=== PATIENT | female | born 1970 | race Caucasian/White ===

== ENCOUNTER → 2016-10-30 | Outpatient (CLI) | payer OTHER ==
[2016-07-18 18:16] VITALS: BP 143/73
[~2016-10-30] MED LIST: CYCL10TA2 PO; IBUP-1060 PO
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
== END | disposition home or self-care (01) ==
LOC: KCIC MRI 15:24
PROVIDERS: ATTEND Nurse Practitioner Family
DX: M54.9 Dorsalgia, unspecified (principal)
CPT/HCPCS: 72148

== ENCOUNTER → 2017-01-17 | Outpatient (CLI) | payer OTHER, BC ==
[2016-07-18 18:16] VITALS: BP 143/73
[~2017-01-17] MED LIST changes: +CHLO750T PO; +IOHEXOL 180 MG/ML 10 ML VIAL. ONE; +TRAM50TA PO; +methylPREDNISolone ACETATE 40 MG/ML VIAL. ONE; +methylPREDNISolone ACETATE 80 MG/ML VIAL. ONE
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
== END | disposition home or self-care (01) ==
LOC: PNCL 10:06
PROVIDERS: ATTEND Anesthesiology
DX: M54.16 Radiculopathy, lumbar region (principal); M19.90 Unspecified osteoarthritis, unspecified site
CPT/HCPCS: 62323; J1030; J1040

== ENCOUNTER → 2017-02-07 | Outpatient (CLI) | payer OTHER, BC ==
[2016-07-18 18:16] VITALS: BP 143/73
--- NOTE | 2017-02-07 23:52 | PAIN ---
DATE OF SERVICE: 02/07/2017 DIAGNOSES: Lumbar radiculopathy. HISTORY OF PRESENT ILLNESS: The patient is a 46-year-old female who returns for followup status post lumbar epidural steroid injection x 1. The patient reports about 50% improvement overall. Pain is still in her low back and left leg, but not traveling nearly as far into the lower legs, into the thigh and lateral anterior aspect and the hip on the left side. The patient reports the pain is a 6 on a scale of 10 at its worse ____ currently. Reports that it is tingling and burning and aching, but much better. The patient reports she is sleeping better at night, still only sleeping about 4 hours at a time, but the pain is not usually awaking her from sleep as it was previously. The patient reports she has been increasing her activity with greater ease and comfort and feels encouraged that she is doing somewhat better. The patient reports no new motor or sensory deficits, no new bowel or bladder incontinence or other complaints. PHYSICAL EXAMINATION: VITAL SIGNS: The patient's blood pressure 116/74, pulse 84, respirations are 20, temperature 98.7 degrees Fahrenheit. Height is 5 feet 6 inches, weight is 174 pounds. GENERAL: The patient is awake, alert, oriented, appropriate, very pleasant demeanor. HEENT: Head shows normocephalic, atraumatic. Extraocular movements are intact and symmetrical. Oral cavity shows mucous membranes moist and pink. Dentition is intact. NECK: Shows anterior throat supple. CHEST: Shows normal on inspection. Breath sounds clear to auscultation bilaterally. HEART: Shows S1 and S2 clear. ABDOMEN: Soft, nontender, nondistended. BACK: Shows spine grossly in the midline. Normal appearing thoracic kyphosis and lumbar lordotic curvature. Lumbar paraspinous musculature is symmetrical on inspection. On palpation shows some very mild tenderness with palpation only in the low lumbar distribution without asymmetry, without radiation of pain, no tenderness over the sacrum or sacroiliac regions. The patient shows good rotational motion of the lumbar spine, both laterally as well as extension and flexion without difficulty. LOWER EXTREMITIES: Showed deep tendon reflexes 2+ in the patellar, 1+ tendo-calcaneus tendons are equal. Motor exam is strong with 5/5 dorsiflexion, extension, quadriceps and hamstring flexion and symmetrical. Options were discussed with the patient and the patient's old chart was reviewed as her current medication regimen updated. Current review of systems updated today as well. We will proceed with a second lumbar epidural steroid injection today with fluoroscopic guidance. Risks were again discussed including, but not limited to bleeding, infection, possibility of epidural hematoma, subsequent neurologic compromise, dural puncture, headaches, spinal cord and/or nerve damage, side effects of steroid medication and poor results regarding pain control. The patient understands and wishes to proceed. The patient will return to clinic in approximately 2 weeks for followup, was counseled on return appointment, activity level and side effects to be aware of. DIAGNOSIS: Lumbar radiculopathy. PROCEDURE: Lumbar epidural steroid injection in translaminar approach at L4-L5 level using C-arm fluoroscopic guidance under sterile prep and drape using local anesthetic. MEDICATIONS INJECTED: 120 mg of Depo-Medrol plus 10 mL of preservative-free normal saline and 2 mL Isovue for contrast. CONDITION AT DISCHARGE: Stable. The patient tolerated procedure well, had no complications. FANY PICHARDO MD DR: MARGUERITE/christ JOB#: [id number] / [id number]
== END | disposition home or self-care (01) ==
LOC: PNCL 08:41
PROVIDERS: ATTEND Anesthesiology
DX: M54.16 Radiculopathy, lumbar region (principal)
CPT/HCPCS: 62323; J1030; J1040

== ENCOUNTER → 2017-02-21 | Outpatient (CLI) | payer OTHER, BC ==
[2016-07-18 18:16] VITALS: BP 143/73
--- NOTE | 2017-02-22 00:04 | PAIN ---
DATE OF SERVICE: 02/21/2017 DIAGNOSES: Lumbar radiculopathy. HISTORY OF PRESENT ILLNESS: The patient is a 46-year-old female who returns for followup status post lumbar epidural steroid injections x 2. The patient reports about 50% improvement, but the pain is returning in the low back and left lower extremity. The patient reports feeling better for about a week or two and the pain returns fairly significantly. It is a 7 on a scale 10 currently, it can be as low as a 2 on a scale of 10, it is generally about 4 on a scale of 10. The patient reports it as aching, tingling, burning in left leg, mostly in the lateral and anterior thigh, posterior thigh, posterior calf. The patient reports no new motor or sensory deficits, no new bowel or bladder incontinence, but significant pain with activity, standing, walking. It has been waking her from sleep occasionally, but not every night. Usually feels better with lying down or sitting, but worse with standing and walking. PHYSICAL EXAMINATION: VITAL SIGNS: The patient shows blood pressure 108/72, pulse 80, respirations are 18, temperature 98.2 degrees Fahrenheit, height is 5 feet 6 inches, weight is ____ pounds. GENERAL: The patient is awake, alert, oriented, appropriate, very pleasant demeanor. HEENT: Head shows normocephalic, atraumatic. Extraocular movements are intact and symmetrical. Oral cavity, mucous membranes are moist and pink. Dentition is intact. NECK: Shows anterior throat supple without palpable lymphadenopathy noted. Swallow reflex is symmetrical. CHEST: Shows normal on inspection. Breath sounds clear to auscultation bilaterally. HEART: Shows S1 and S2 clear. ABDOMEN: Soft, nontender, nondistended. No palpable organomegaly is noted. BACK: Shows spine grossly midline. Lumbar paraspinous muscle shows some moderate tenderness with palpation, but only in the middle and lower distribution of paraspinous muscles ____ diffusely without radiation, without asymmetry or atrophy, hypertrophy with normal muscle girth on palpation. No tenderness over the sacrum or sacroiliac regions. EXTREMITIES: Lower extremities showed deep tendon reflexes at 2+ in the patellar, 1+ tendo-calcaneus tendons are equal. Motor exam is strong with 5/5 dorsiflexion, extension, quadriceps and hamstring flexion equal. Options were discussed with the patient and the patient's old chart was reviewed as her current medication regimen updated. Current review of systems updated today as well. We will proceed with a third in the series of lumbar epidural steroid injection with fluoroscopic guidance. Risks were again discussed including, but not limited to bleeding, infection, possibility of epidural hematoma and subsequent neurologic compromise, dural puncture, headaches, spinal cord and/or nerve damage, side effects of steroid medication and poor results regarding pain control. The patient understands and wishes to proceed. The patient will return to clinic in approximately 2 weeks for followup, was counseled on return appointment, activity level and side effects to be aware of. DIAGNOSIS: Lumbar radiculopathy. PROCEDURE: Lumbar epidural steroid injection in translaminar approach at the L4-L5 level using C-arm fluoroscopic guidance under sterile prep and drape using local anesthetic. MEDICATIONS INJECTED: 120 mg Depo-Medrol plus 10 mL of preservative-free normal saline and 2 mL Isovue for contrast. CONDITION AT DISCHARGE: Stable. The patient tolerated procedure well, had no complications. FANY PICHARDO MD DR: MARGUERITE/christ JOB#: [id number] / [id number]
== END | disposition home or self-care (01) ==
LOC: PNCL 08:42
PROVIDERS: ATTEND Anesthesiology
DX: M54.16 Radiculopathy, lumbar region (principal)
CPT/HCPCS: 62323; J1030; J1040

== ENCOUNTER → 2017-12-08 | Outpatient (CLI) | payer OTHER, BC ==
[~2017-12-08] MED LIST changes: -CHLO750T PO; -CYCL10TA2 PO; -IBUP-1060 PO; +IOHEXOL 180 MG/ML 10 ML VIAL.; -IOHEXOL 180 MG/ML 10 ML VIAL. ONE; -TRAM50TA PO; +methylPREDNISolone ACETATE 40 MG/ML VIAL.; -methylPREDNISolone ACETATE 40 MG/ML VIAL. ONE; +methylPREDNISolone ACETATE 80 MG/ML VIAL.; -methylPREDNISolone ACETATE 80 MG/ML VIAL. ONE
== END | disposition home or self-care (01) ==
LOC: PNCL 09:07
DX: M54.16 Radiculopathy, lumbar region (principal)
CPT/HCPCS: 62323; J1030; J1040; Q9965

== ENCOUNTER → 2017-12-22 | Outpatient (CLI) | payer OTHER, BC | END | disposition home or self-care (01) | LOC: PNCL 08:53 | DX: M54.16 Radiculopathy, lumbar region (principal) | CPT/HCPCS: 62323; J1030; J1040; Q9965 ==

== ENCOUNTER → 2018-01-05 | Outpatient (CLI) | payer OTHER, BC | END | disposition home or self-care (01) | LOC: PNCL 09:21 | DX: M54.16 Radiculopathy, lumbar region (principal) | CPT/HCPCS: 62323; J1030; J1040; Q9965 ==

== ENCOUNTER → 2018-07-28 | Outpatient (CLI) | payer OTHER, BC ==
[2016-07-18 18:16] VITALS: BP 143/73
[~2018-07-28] MED LIST changes: +CHLO750T PO; +CYCL10TA2 PO; +IBUP-1060 PO; -IOHEXOL 180 MG/ML 10 ML VIAL.; +IOHEXOL 180 MG/ML 10 ML VIAL. ONE; +LIDOCAINE 1% PF 2 ML VIAL. ONE; +TRAM50TA PO; -methylPREDNISolone ACETATE 40 MG/ML VIAL.; +methylPREDNISolone ACETATE 40 MG/ML VIAL. ONE; -methylPREDNISolone ACETATE 80 MG/ML VIAL.; +methylPREDNISolone ACETATE 80 MG/ML VIAL. ONE
--- NOTE | 2018-07-28 12:05 | PAIN ---
DATE OF SERVICE: 07/28/2018 PROGRESS NOTE FOR PAIN CLINIC DIAGNOSES: Lumbar radiculopathy with lumbar degenerative disk disease. HISTORY OF PRESENT ILLNESS: This is a 48-year-old female who returns for followup status post lumbar epidural steroid injections x 3, last seen 01/05/2018. The patient did pretty well with about a 90% improvement until late May, so about the past month or so, she has been having some increased pain in the low back and left lower extremity, was returned fairly quickly in the posterior gluteus, posterior thigh, posterior calf with numbness in the foot and tingling. The patient reports it is burning as well as radiating, aching, shooting, sharp, worse with sitting on a hard surface. She has to change positions quite frequently, worse with activity, walking, awakens her from sleep at night. Again until late May, she was doing very well with decreased ability to have it limit her activities as well as better sleeping at night, distance walking, returning to work and household activities, now becoming more noticeable, more tender and more painful especially in the left lower extremity and the low back. The patient reports pain is a 9 on a scale of 10 at its worst, 6 on average and a 2 at its least and is a 6 today. The patient reports no new motor or sensory deficits, no new bowel or bladder incontinence. PHYSICAL EXAMINATION: VITAL SIGNS: The patient's blood pressure 129/86, pulse 101, respirations 18, temperature 98.2 degrees Fahrenheit, height is 5 feet 6 inches, weight is 186 pounds. GENERAL: The patient is awake, alert, oriented, appropriate, very pleasant demeanor. HEENT: Head shows normocephalic, atraumatic. Extraocular movements intact and symmetrical. Oral cavity: Mucous membranes moist and pink. Dentition is intact. NECK: Shows anterior throat supple without palpable lymphadenopathy noted. Swallow reflex is symmetrical. CHEST: Shows normal with inspection. Breath sounds clear to auscultation bilaterally. HEART: Shows S1, S2 clear. No murmurs auscultated. ABDOMEN: Soft, nontender, nondistended. No palpable organomegaly is noted. No rebound or guarding demonstrated. BACK: Shows spine grossly in the midline. Normal appearing thoracic kyphosis and lumbar lordotic curvature. Lumbar paraspinous muscle shows some moderate tenderness with palpation, but is symmetrical on inspection. No trigger points, no radiation, no asymmetry. The patient has no tenderness over the spinous processes, sacrum or sacroiliac regions. EXTREMITIES: The patient's lower extremities show deep tendon reflexes at 1+ in the patellar and tendo calcaneus tendons are equal. Motor exam is approximately 4 on a scale of 5 in the left with quadriceps and hamstring flexion and 5/5 on the right. Peripheral pulses are 1+ posterior tibia. No peripheral edema is noted bilaterally. PLAN: Options were discussed with the patient. The patient's old chart was reviewed as well as her current medication regimen updated. Current review of systems updated today as well. We will proceed with the first in the series of lumbar epidural steroid injection today with fluoroscopic guidance. Risks were again discussed including, but not limited to bleeding, infection, possibility of epidural hematoma and subsequent neurological compromise, dural punctures, headaches, spinal cord and/or nerve damage, side effects of steroid medication and poor results regarding pain control. The patient understands and wished to proceed. The patient will return to clinic in approximately 2 weeks for followup, was counseled on return appointment, activity level and side effects to be aware of. DIAGNOSES: Lumbar radiculopathy with lumbar degenerative disk disease. PROCEDURE: Lumbar epidural steroid injection, translaminar approach L4-L5 level using C-arm fluoroscopic guidance under sterile prep and drape using local anesthetic. MEDICATION INJECTED: A total of 120 mg Depo-Medrol plus 10 mL of preservative-free normal saline and 2 mL of Isovue for contrast. CONDITION AT DISCHARGE: Stable. The patient tolerated the procedure well, had no complications. FANY PICHARDO MD DR: MARGUERITE/christ JOB#: [id number] / [id number]
== END | disposition home or self-care (01) ==
LOC: PNCL 11:07
PROVIDERS: ATTEND Anesthesiology
DX: M51.16 Intervertebral disc disorders with radiculopathy, lumbar region (principal); Z79.899 Other long term (current) drug therapy
CPT/HCPCS: 62323; J1030; J1040; Q9965

== ENCOUNTER → 2018-08-21 | Outpatient (CLI) | payer OTHER, BC ==
[2016-07-18 18:16] VITALS: BP 143/73
[~2018-08-21] MED LIST changes: -LIDOCAINE 1% PF 2 ML VIAL. ONE
--- NOTE | 2018-08-21 12:34 | PAIN ---
DATE OF SERVICE: 08/21/2018 PROGRESS NOTE FOR PAIN CLINIC DIAGNOSIS: Lumbar radiculopathy with lumbar degenerative disk disease. HISTORY OF PRESENT ILLNESS: The patient is a 48-year-old female who returns for followup status post lumbar epidural steroid injection x 1. This series, the patient reports about 30% improvement overall, doing quite well initially, but the pain is returning now in the low back, left lower extremity, mostly in the posterior gluteus, posterior lateral thigh, lateral anterior thigh, medial thigh and posterior calf. The patient reports it is an aching, tingling, burning, radiating; rates 8 on a scale of 10 at its worst, 6 on average, 2 at its least and is 5 today, but reports initially increased activity with greater distance walking, doing household activities, traveling with much greater ease and comfort, but the pain has been beginning to return now after about 2 weeks. The patient reports it wakes her from sleep about every 4-5 hours at night now, initially it was not and the pain is returning as described. The patient reports no new motor or sensory deficits, no new bowel or bladder incontinence or other complaints. PHYSICAL EXAMINATION: VITAL SIGNS: The patient's blood pressure is 120/83, pulse 107, respirations 16, temperature 98.8 degrees Fahrenheit, height is 5 feet 6 inches, weighs 186 pounds. GENERAL: The patient is awake, alert, oriented, appropriate, very pleasant demeanor. HEENT: Head shows normocephalic, atraumatic. Extraocular movements are intact and symmetrical. Oral cavity: Mucous membranes moist and pink. Dentition is intact. NECK: Shows anterior throat supple without palpable lymphadenopathy noted. Swallow reflex symmetrical. CHEST: Shows normal on inspection. Breath sounds clear to auscultation bilaterally. HEART: Shows S1, S2 clear. No murmurs auscultated. ABDOMEN: Soft, nontender, nondistended. No palpable organomegaly is noted. BACK: Shows spine grossly in the midline. Normal-appearing thoracic kyphosis and lumbar lordotic curvature. Lumbar paraspinous muscle shows symmetrical with some moderate tenderness with palpation in the middle and lower distribution of paraspinous muscles, but diffusely without radiation, without trigger points. The patient does show good rotational motion of lumbar spine, both laterally as well as extension and flexion without significant difficulty or pain reported. EXTREMITIES: Lower extremities show deep tendon reflexes 1+ in the patellar and tendo calcaneus tendons are equal. Motor exam is strong with approximately 4 on a scale of 5 left and 5/5 on the right dorsiflexion, extension, but intact. Peripheral pulses are 1+ posterior tibia. No peripheral edema is noted bilaterally. Options were discussed with the patient. The patient's old chart was reviewed as was current medication regimen updated. Current review of systems updated today as well. We will proceed with a second in series of lumbar epidural steroid injection today with fluoroscopic guidance. Risks were again discussed including, but not limited to bleeding, infection, possibility of epidural hematoma, subsequent neurological compromise, dural puncture, headaches, spinal cord and/or nerve damage, side effects of steroid medication and poor results regarding pain control. The patient understands and wished to proceed. The patient will return to clinic in approximately 2 weeks for followup. She was counseled as to return appointment and activity level and side effects to be aware of. DIAGNOSIS: Lumbar radiculopathy with lumbar degenerative disk disease. PROCEDURE: Lumbar epidural steroid injection, translaminar approach L4-L5 level using C-arm fluoroscopic guidance under sterile prep and drape using local anesthetic. MEDICATION INJECTED: A total of 120 mg Depo-Medrol plus 10 mL of preservative-free normal saline and 2 mL of Isovue for contrast. CONDITION AT DISCHARGE: Stable. The patient tolerated the procedure well, had no complications. FANY PICHARDO MD DR: MARGUERITE/christ JOB#: [id number] / [id number]
== END | disposition home or self-care (01) ==
LOC: PNCL 10:37
PROVIDERS: ATTEND Anesthesiology
DX: M51.16 Intervertebral disc disorders with radiculopathy, lumbar region (principal)
CPT/HCPCS: 62323; J1030; J1040; Q9965

== ENCOUNTER → 2018-09-07 | Outpatient (CLI) | payer OTHER, BC ==
[2016-07-18 18:16] VITALS: BP 143/73
--- NOTE | 2018-09-08 01:35 | PAIN ---
DATE OF SERVICE: 09/07/2018 DIAGNOSES: Lumbar radiculopathy with lumbar degenerative disk disease. HISTORY OF PRESENT ILLNESS: The patient is a 48-year-old female who returns for followup status post lumbar epidural steroid injection x 2. Most recently on 08/21/2018, the patient did very well, about 80% improvement, reports still pain in the low back, left lower extremity, posterior gluteus, posterior thigh, lateral thigh, anterior thigh, medial thigh. The reports it is aching, tingling, burning, radiating and alternating pain; worse with walking, standing, changing positions; better with sitting or lying down, but does awaken her from sleep about every 5 hours if she lays on her right side. The patient reports the pain is a 4 on a scale of 10 at its worst, 2 on average, 1 at its least and is a 1 today. The patient reports no new motor or sensory deficits, no new bowel or bladder incontinence or other complaints. She is originally increasing her activity, walking, doing work activities to help with activities with greater ease and comfort. PHYSICAL EXAMINATION: VITAL SIGNS: Today, the patient's blood pressure 141/85, pulse 98, respirations 18, temperature 98.2 degrees Fahrenheit, 5 feet 6 inches, weighs 187 pounds. GENERAL: She is awake, alert, oriented, appropriate, very pleasant demeanor. HEENT: Head shows normocephalic, atraumatic. Extraocular movements intact and symmetrical. Oral cavity: Mucous membranes are moist and pink. Dentition is intact. NECK: Shows anterior throat supple. Swallow reflex is symmetrical. CHEST: Shows normal on inspection. Breath sounds clear to auscultation bilaterally. HEART: Shows S1, S2 clear. No murmurs auscultated. ABDOMEN: Soft, nontender, nondistended. No palpable organomegaly is noted. BACK: Shows spine grossly in the midline. Normal appearing thoracic kyphosis and lumbar lordotic curvature. Lumbar paraspinous musculature shows symmetrical on inspection, on palpation some mild tenderness only diffusely in the lower lumbar distribution without radiation. The patient shows good rotational motion of lumbar spine, both laterally as well as extension and flexion without significant difficulty. EXTREMITIES: The patient's lower extremities show deep tendon reflexes at 1+ in the patellar and tendo calcaneus tendons. Motor exam is approximately 4 on a scale of 5 on the left and 5/5 on the right with dorsiflexion, extension, quadriceps and hamstring flexion bilaterally. Peripheral pulses are 1+ without peripheral edema. Options were discussed with the patient. The patient's old chart was reviewed as her current medication regiment and updated. Current review of systems is updated today as well. We will proceed with a third in the series of lumbar epidural steroid injection today with fluoroscopic guidance. Risks were again discussed including, but not limited to bleeding, infection, possibility of epidural hematoma, subsequent neurological compromise, dural puncture headache, cord and/or nerve damage, side effects of steroid medication and poor results regarding pain control. The patient understands and wished to proceed. The patient to return to clinic in approximately 2 weeks for followup, was counseled on return appointment, activity level and side effects to be aware of. DIAGNOSIS: Lumbar radiculopathy with lumbar degenerative disk disease. PROCEDURES: Lumbar epidural steroid injection, translaminar approach at L4-L5 level using C-arm fluoroscopic guidance under sterile prep and drape using local anesthetic. MEDICATIONS INJECTED: A total of 120 mg Depo-Medrol plus 10 mL of preservative-free normal saline and 2 mL of Isovue for contrast. CONDITION AT DISCHARGE: Stable. The patient tolerated procedure well, had no complications. FANY PICHARDO MD DR: MARGUERITE/christ JOB#: [id number] / [id number]
== END | disposition home or self-care (01) ==
LOC: PNCL 07:34
PROVIDERS: ATTEND Anesthesiology
DX: M51.16 Intervertebral disc disorders with radiculopathy, lumbar region (principal); Z79.899 Other long term (current) drug therapy
CPT/HCPCS: 62323; J1030; J1040; Q9965

== ENCOUNTER → 2019-05-05 | Outpatient (CLI) | payer BC ==
[2016-07-18 18:16] VITALS: BP 143/73
--- NOTE | 2019-05-05 23:19 | PAIN ---
DATE OF SERVICE: 05/05/2019 PROGRESS NOTE FOR PAIN CLINIC DIAGNOSIS: Lumbar radiculopathy with lumbar degenerative disk disease. HISTORY OF PRESENT ILLNESS: The patient is a 49-year-old female who returns for followup status post lumbar epidural steroid injections x 3, last seen 09/07/2018. The patient did very well with about 95% improvement until the last 4-5 weeks. The patient reports the pain is returning in the low back, left lower extremity, was previously in the posterior gluteus, posterior thigh, posterior calf, lateral thigh, lateral anterior thigh and calf as well. The patient reports it is aching and sharp, shooting, tingling, burning, radiating into the left leg across the low back as well, but mostly on the left side. The patient reports no new motor or sensory deficits, no new bowel or bladder incontinence or other complaints. The patient reports the pain is a 9 on a scale of 10 at its worst, 7 on average, 4 at its least and is 4 today. The patient reports it is awaken her from sleep about every 6 hours. Initially, she was doing much better with increased distance walking, doing work activities, household activities and traveling with greater ease and comfort, but the pain is returning now over the past few weeks as noted. The patient reports no new motor or sensory deficits, no new bowel or bladder incontinence or other complaints. PHYSICAL EXAMINATION: VITAL SIGNS: The patient's blood pressure is 106/61, pulse 94, respirations 18, temperature 99.1 degrees Fahrenheit, height 5 feet 6 inches, weight is 150 pounds. GENERAL: The patient is awake, alert, oriented, appropriate, very pleasant demeanor. HEENT: Head is normocephalic, atraumatic. Extraocular movements are intact and symmetrical. Oral cavity: Mucous membranes moist and pink. Dentition is intact. NECK: Shows anterior throat supple without palpable lymphadenopathy noted. CHEST: Shows normal on inspection. Breath sounds are clear to auscultation bilaterally. HEART: Shows S1, S2 clear. No murmurs auscultated. ABDOMEN: Soft, nontender, nondistended. No palpable organomegaly is noted. No rebound or guarding demonstrated. BACK: Shows spine grossly in the midline. The patient's lumbar paraspinous muscle shows symmetrical on inspection, with palpation shows some moderate tenderness diffusely bilaterally going diffusely in the middle and lower distribution of paraspinous muscles. The patient has good rotational motion of lumbar spine, both laterally as well as extension and flexion without significant difficulty or pain reported. No trigger points demonstrated. No tenderness over the sacrum or sacroiliac regions. EXTREMITIES: The patient's lower extremities showed deep tendon reflexes 1+ in the patellar and tendo calcaneus tendons. Motor exam is strong with approximately 4 on a scale of 5 on the left and 5/5 on the right dorsiflexion, extension, quadriceps and hamstring flexion. The patient has a mild straight leg raise, which is positive on the left side at about 35-40 degrees, decreased with knee flexion, right side is negative. Gaenslen's and Joni's maneuvers remain negative bilaterally. Options were discussed with the patient. The patient's old chart was reviewed as her current medication regimen updated. Current review of systems updated today as well. We will proceed with a first in this series of lumbar epidural steroid injection today with fluoroscopic guidance. Risks were again discussed including, but not limited to bleeding, infection, possibility of epidural hematoma, subsequent neurological compromise, dural puncture, headaches, spinal cord and/or nerve damage, side effects of steroid medication and poor results regarding pain control. The patient understands and wished to proceed. The patient will return to clinic in approximately 2 weeks for followup. She was counselled on return appointment, activity level and side effects to be aware of. DIAGNOSES: Lumbar radiculopathy with lumbar degenerative disk disease. PROCEDURE: Lumbar epidural steroid injection, translaminar approach L4-L5 level using C-arm fluoroscopic guidance under sterile prep and drape using local anesthetic. MEDICATION INJECTED: The patient received a total of 120 mg Depo-Medrol plus 10 mL of preservative-free normal saline and 2 mL of contrast. CONDITION AT DISCHARGE: Stable. The patient tolerated procedure well, had no complications. FANY PICHARDO MD DR: MARGUERITE/christ JOB#: [id number] / [id number]
== END ==
LOC: PNCL 13:45
PROVIDERS: ATTEND Anesthesiology
DX: M51.16 Intervertebral disc disorders with radiculopathy, lumbar region (principal)
CPT/HCPCS: 62323; J1030; J1040; Q9965

== ENCOUNTER → 2019-05-20 | Outpatient (CLI) | payer BC ==
[2016-07-18 18:16] VITALS: BP 143/73
--- NOTE | 2019-05-21 12:34 | PAIN ---
DATE OF SERVICE: 05/20/2019 PROGRESS NOTE FOR PAIN CLINIC DIAGNOSES: Lumbar radiculopathy with lumbar degenerative disk disease. HISTORY OF PRESENT ILLNESS: The patient is a 49-year-old female who returns for followup status post lumbar epidural steroid injection x1 this series. The patient reports only about 20% improvement in the low back and left lower extremity. The patient reports that after a few days, the pain began to get better, but still significant with sitting, walking, standing, changing positions. The patient reports it is better with lying down, does not awaken her from sleep at night. Currently, the patient reports the pain is 8 on a scale of 10 at its worst, 5 on average, and 3 at its least over the past week and is a 5 today. The patient is a burning, aching in the low back, radiating to posterior gluteus, posterolateral thigh, lateral anterior thigh, medial thigh, and posterior lower leg. The patient reports again worse with walking, standing, changing positions, or sitting on hard surfaces without back support such as a bleacher. PHYSICAL EXAMINATION: VITAL SIGNS: The patient's blood pressure is 110/70, pulse 81, respirations 18, temperature 97.9 degrees Fahrenheit, height is 5 feet 6 inches and weight 155 pounds. GENERAL: The patient is awake, alert, oriented, appropriate, very pleasant demeanor. HEENT: Shows normocephalic, atraumatic. Extraocular movements are intact and symmetrical. Oral cavity: Mucous membranes moist and pink. Dentition is intact. NECK: Shows anterior throat supple without palpable lymphadenopathy noted. Swallow reflex symmetrical. CHEST: Shows normal on inspection. Breath sounds clear to auscultation bilaterally. HEART: Shows S1 and S2 clear. No murmurs auscultated. ABDOMEN: Soft, nontender, nondistended. No palpable organomegaly is noted. No rebound or guarding demonstrated. BACK: Shows spine grossly in the midline. Normal appearing thoracic kyphosis and lumbar lordotic curvature. Lumbar paraspinous muscle shows symmetrical on inspection, with palpation shows some mild tenderness in the inferior aspect of the lumbar paraspinous musculature diffusely bilaterally, but only diffusely without radiation. EXTREMITIES: The patient's lower extremities show deep tendon reflexes at 1+ in the patellar and tendo calcaneus tendons. Motor exam is approximately 4 on a scale of 5 on the left and 5/5 on the right. Peripheral pulses are 1+ posterior tibia. No peripheral edema is noted bilaterally. Options were discussed with the patient. The patient's old chart was reviewed as her current medication regimen updated. Current review of systems updated today as well. We will proceed with a second in the series of lumbar epidural steroid injection today with fluoroscopic guidance. Risks were again discussed including, but not limited to bleeding, infection, possibility of epidural hematoma, subsequent neurologic compromise, dural puncture, headaches, spinal cord and/or nerve damage, side effects of steroid medication, and poor results regarding pain control. The patient understands and wished to proceed. The patient will return to clinic in approximately 2 weeks for followup. She was counseled on return appointment, activity level and side effects to be aware of. DIAGNOSIS: Lumbar radiculopathy with lumbar degenerative disk disease. PROCEDURE: Lumbar epidural steroid injection, translaminar approach at L4-L5 level using C-arm fluoroscopic guidance under sterile prep and drape using local anesthetic. MEDICATION INJECTED: The patient received a total of 120 mg Depo-Medrol plus 10 mL of preservative-free normal saline and 2 mL of contrast. CONDITION AT DISCHARGE: Stable. The patient tolerated procedure well, had no complications. FANY PICHARDO MD DR: MARGUERITE/christ JOB#: [id number] / [id number]
== END ==
LOC: PNCL 12:43
PROVIDERS: ATTEND Anesthesiology
DX: M51.16 Intervertebral disc disorders with radiculopathy, lumbar region (principal); M54.5 Low back pain
CPT/HCPCS: 62323; J1030; J1040; Q9965

== ENCOUNTER → 2020-09-19 | Outpatient (CLI) | payer BC, OTHER ==
[2016-07-18 18:16] VITALS: BP 143/73
[~2020-09-19] MED LIST changes: -IOHEXOL 180 MG/ML 10 ML VIAL. ONE; -methylPREDNISolone ACETATE 40 MG/ML VIAL. ONE; -methylPREDNISolone ACETATE 80 MG/ML VIAL. ONE
--- NOTE | 2020-09-19 18:06 | RAD ---
Examination: 1. Left digital diagnostic mammogram. 2. Limited left breast ultrasound. INDICATION: Screening recall for nodule in the lateral left breast. COMPARISON: Screening mammogram of 09/07/2020. TECHNIQUE: Full field left ML view was obtained in addition to spot compression CC view. Targeted ult rasound of the upper-outer quadrant left breast was also performed. FINDINGS: Heterogeneously dense breast parenchyma. The questioned nodularity in the lateral left breast appear to change configuration in a pattern compatible with benign fibroglandular tissue. No dominant mass i dentified on additional mammographic views. Targeted ultrasound of the anterior and mid upper outer q uadrant left breast identified a 7 mm cyst at the 2:30 o'clock position 5 cm from the nipple that is sonographically benign. Sonographic survey of the left axilla revealed no adenopathy. IMPRESSION: Benign findings on left diagnostic mammogram and targeted left breast ultrasound. No evidence of abdifatah gnancy. BI-RADS Category 2 Benign findings Recommend patient return to routine screening next due in one year. Patient entered into a reminder system with targeted due date for next mammogram. Electronically signed by: Caio Zhang MD (09/19/2020 6:03 PM) [id number]
== END ==
LOC: MAMMO 12:40
PROVIDERS: ATTEND Obstetrics & Gynecology
DX: R92.8 Other abnormal and inconclusive findings on diagnostic imaging of breast (principal)
CPT/HCPCS: 76641; 77065